=== PATIENT | female | born 1970 | race Caucasian/White ===

== ENCOUNTER 2017-12-08 08:00 | Outpatient (CLI) | payer OTHER ==
[2017-12-08 12:43] LABS: BASOPHILS # (AUTO) 0.1 10^3/uL (0.0-0.1); EOSINOPHILS # (AUTO) 0.4 10^3/uL (0.0-0.7); EOSINOPHILS % (AUTO) 4.5 %; HGB - HEMOGLOBIN 14.8 g/dL (12.0-16.0); LYMPHOCYTES # (AUTO) 3.3 10^3/uL (1.5-3.5); LYMPHOCYTES % (AUTO) 38.7 %; MEAN CORPUSCULAR HEMOGLOBIN 30.7 pg (27.0-31.0); MEAN CORPUSCULAR VOLUME 90.4 fL (81.0-99.0); MEAN PLATELET VOLUME 7.8 fL (7.9-10.8); MONOCYTES # (AUTO) 0.8 10^3/uL (0.0-1.0); MONOCYTES % (AUTO) 9.5 %; NEUTROPHILS # (AUTO) 3.9 10^3/uL (1.5-6.6); NEUTROPHILS % (AUTO) 46.3 %; PLT - PLATELET COUNT 377 10^3/uL (130-450); RED BLOOD COUNT 4.83 10^6/uL (4.20-5.40); RED CELL DISTRIBUTION WIDTH 13.9 % (12.0-15.0); WHITE BLOOD COUNT 8.5 x10^3/uL (4.8-10.8)
[2017-12-08 13:00] LABS: ALBUMIN 4.3 g/dL (3.2-5.5); ALBUMIN/GLOBULIN RATIO 1.2 (1.0-2.2); ALKALINE PHOSPHATASE 63 IU/L (42-121); ALT ALANINE AMINOTRANSFERASE 25 IU/L (10-60); AST ASPARTATE AMINOTRANSFERASE 25 IU/L (10-42); BILIRUBIN,TOTAL 0.5 mg/dL (0.2-1.0); BUN - BLOOD UREA NITROGEN 18 mg/dL (6-20); CALCIUM 9.3 mg/dL (8.5-10.3); CARBON DIOXIDE - CO2 27 mmol/L (21-32); CHLORIDE 104 mmol/L (101-111); CHOL/HDL RATIO 5.1 (<4.4); CHOLESTEROL 223 mg/dL; CREATININE 0.8 mg/dL (0.4-1.0); GFR - MDRD 77 (>89); GLUCOSE 96 mg/dL (70-100); HDL CHOLESTEROL 44 mg/dL; LDL CHOLESTEROL,CALCULATED 153 mg/dL; LDL/HDL RATIO 3.5 (<4.4); SODIUM 136 mmol/L (135-145); TOTAL PROTEIN 7.8 g/dL (6.7-8.2); VLDL CHOLESTEROL 26 mg/dL
== END 2017-12-08 08:01 ==
LOC: LAB.WCP 08:00
PROVIDERS: ATTEND Family Medicine
DX: Z00.00 Encounter for general adult medical examination without abnormal findings (principal); M72.6 Necrotizing fasciitis; K50.90 Crohn's disease, unspecified, without complications; M06.9 Rheumatoid arthritis, unspecified; L93.0 Discoid lupus erythematosus; Z79.891 Long term (current) use of opiate analgesic
CPT/HCPCS: 36415; 80053; 80061; 83721; 84443; 85025

== ENCOUNTER 2018-02-01 10:54 | Outpatient (CLI) | payer OTHER ==
--- NOTE | 2018-02-16 12:15 | Mammography Report ---
Procedure Date: 02/01/2018 Accession Number: [id number] / [id number] Procedure: MGN - Screening Mammo Dig Bilat CPT Code: FULL RESULT: EXAM: Screening Mammo Dig Bilat DATE: 02/01/2018 11:12 AM CLINICAL HISTORY: Routine screening TECHNIQUE: Bilateral CC and MLO views were obtained. COMPARISON: None available FINDINGS: There are scattered fibroglandular densities. No suspicious masses, clustered microcalcifications, skin thickening, or regions of architectural distortion are identified. Metallic device right axilla. IMPRESSION: Negative. RECOMMENDATION: Routine annual screening unless otherwise clinically indicated. BIRADS CATEGORY 1: Negative. STANDARD QUALIFYING STATEMENTS: 1. This examination was reviewed with the aid of Computer-Aided Detection (CAD). 2. A negative or benign imaging report should not delay biopsy if clinically suspicious findings are present. Consider surgical consultation if warrented. More than 5% of cancers are not identified by imaging. 3. Dense breasts may obscure an underlying neoplasm.
== END 2018-02-01 10:55 | disposition home or self-care (01) ==
LOC: DI.N 10:54
PROVIDERS: ATTEND Family Medicine
DX: Z12.31 Encounter for screening mammogram for malignant neoplasm of breast (principal)
CPT/HCPCS: 77067

== ENCOUNTER 2018-02-10 08:55 | Outpatient (CLI) | payer OTHER ==
--- NOTE | 2018-02-10 11:32 | XRAY Report ---
Procedure Date: 02/10/2018 Accession Number: [id number] / [id number] Procedure: XRN - Foot 3 View BILAT CPT Code: FULL RESULT: EXAM: Two-view bilateral feet DATE: 02/10/2018 9:38 AM CLINICAL HISTORY: HAND AND FOOT PAIN COMPARISON: None. TECHNIQUE: 2 views each foot. FINDINGS: RIGHT: Bones: Plantar and posterior calcaneal spurring. No evidence of fracture. Joints: Normal. No subluxations. Soft Tissues: Normal. No soft tissue swelling. LEFT: Bones: Posterior calcaneal spurring. No evidence of fracture. Joints: Normal. No subluxations. Soft Tissues: Normal. No soft tissue swelling. IMPRESSION: Right greater than left calcaneal spurring. RADIA
--- NOTE | 2018-02-10 11:34 | XRAY Report ---
Procedure Date: 02/10/2018 Accession Number: [id number] / [id number] Procedure: XRN - Hand 3 View BILAT CPT Code: FULL RESULT: EXAM: Hand 2 View BILAT DATE: 02/10/2018 9:38 AM CLINICAL HISTORY: Pain COMPARISON: None. TECHNIQUE: 2 views each hand. FINDINGS: RIGHT: Bones: Normal. No fractures or bone lesions. Joints: Normal. No subluxations. Soft Tissues: Normal. No soft tissue swelling. LEFT: Bones: Normal. No fractures or bone lesions. Joints: Normal. No subluxations. Soft Tissues: Normal. No soft tissue swelling. IMPRESSION: Normal bilateral hand radiography. RADIA
== END 2018-02-10 08:56 | disposition home or self-care (01) ==
LOC: DI.N 08:55
PROVIDERS: ATTEND Internal Medicine Rheumatology
DX: M77.32 Calcaneal spur, left foot (principal); M77.31 Calcaneal spur, right foot

== ENCOUNTER 2018-03-30 09:29 | Outpatient (CLI) | payer OTHER ==
[2018-03-31 12:21] LABS: HIV AG/AB 4TH GEN NON-REACTIVE (NON-REACTIVE)
[2018-04-01 12:01] LABS: HSV 2 IGG TYPE SPECIFIC AB <0.90 index
== END 2018-03-30 09:30 | disposition home or self-care (01) ==
LOC: LAB 09:29
PROVIDERS: ATTEND Family Medicine
DX: Z13.9 Encounter for screening, unspecified (principal)
CPT/HCPCS: 36415; 86695; 86696; 87389; 87491; 87591

== ENCOUNTER 2018-04-05 08:00 | Outpatient (CLI) | payer OTHER ==
[2018-04-05 19:13] LABS: ALBUMIN 3.8 g/dL (3.2-5.5); ALBUMIN/GLOBULIN RATIO 1.1 (1.0-2.2); BILIRUBIN,TOTAL 0.7 mg/dL (0.2-1.0); CALCIUM 9.4 mg/dL (8.5-10.3); CREATININE 0.9 mg/dL (0.4-1.0); TOTAL PROTEIN 7.4 g/dL (6.7-8.2)
[2018-04-05 19:25] LABS: BASOPHILS # (AUTO) 0.1 10^3/uL (0.0-0.1); BASOPHILS % (AUTO) 0.7 %; EOSINOPHILS # (AUTO) 0.3 10^3/uL (0.0-0.7); EOSINOPHILS % (AUTO) 2.6 %; HGB - HEMOGLOBIN 14.5 g/dL (12.0-16.0); LYMPHOCYTES # (AUTO) 4.7 10^3/uL (1.5-3.5); LYMPHOCYTES % (AUTO) 45.6 %; MEAN CORPUSCULAR HEMOGLOBIN 30.9 pg (27.0-31.0); MEAN CORPUSCULAR HGB CONC 33.8 g/dL (32.0-36.0); MEAN CORPUSCULAR VOLUME 91.4 fL (81.0-99.0); MEAN PLATELET VOLUME 8.3 fL (7.9-10.8); MONOCYTES # (AUTO) 0.9 10^3/uL (0.0-1.0); MONOCYTES % (AUTO) 8.7 %; NEUTROPHILS # (AUTO) 4.3 10^3/uL (1.5-6.6); NEUTROPHILS % (AUTO) 42.4 %; PLT - PLATELET COUNT 353 10^3/uL (130-450); RED BLOOD COUNT 4.69 10^6/uL (4.20-5.40); WHITE BLOOD COUNT 10.3 x10^3/uL (4.8-10.8)
== END 2018-04-05 08:01 | disposition home or self-care (01) ==
LOC: LAB.N 08:00
PROVIDERS: ATTEND Internal Medicine Gastroenterology
DX: K50.813 Crohn's disease of both small and large intestine with fistula (principal)
CPT/HCPCS: 36415; 80053; 85025

== ENCOUNTER 2018-04-08 14:56 | Emergency (ER) | payer OTHER ==
[2018-04-08] MEDS ORDERED: KETOROLAC 30 MG/ML VIAL IVP STA (15:19)
--- NOTE | 2018-04-08 15:21 | ED Physician Documentation ---
PD HPI ABD PAIN - Stated complaint Stated Complaint: ABD PX - Chief complaint Chief Complaint: Abd Pain - History obtained from History obtained from: Patient - History of Present Illness Timing - onset: Today Timing - duration: Minutes Timing - details: Abrupt onset, Still present Quality: Sharp, Pain Location: LUQ Radiation: Other (genitals) Improved by: Other (nothing) Worsened by: Other (nothing) Associated symptoms: No: Fever, Nausea, Vomiting, Hematemesis, Diarrhea, Constipation Similar symptoms before: Diagnosis (kidney stone) Recently seen: Not recently seen - Additional information Additional information: 39-year-old female with history of Crohn's disease has moved to the [facility] here today. She has experienced sudden onset of severe left sided pain radiating into her genitals. She has had this occur once previously about 2 years ago related to kidney stone. She also has had complicated past history with Crohn's disease with abscess and fistula formation. This took quite a while to heal up from. She does not feel like she has any issue with her Crohn' s disease right now. Review of Systems Constitutional: denies: Fever Eyes: denies: Decreased vision Ears: denies: Ear pain Nose: denies: Congestion Throat: denies: Sore throat Cardiac: denies: Chest pain / pressure, Palpitations Respiratory: denies: Dyspnea, Cough GI: reports: Abdominal Pain, Nausea. denies: Vomiting, Constipation, Diarrhea : denies: Dysuria, Frequency Skin: denies: Rash Musculoskeletal: reports: Back pain. denies: Neck pain, Extremity pain Neurologic: denies: Generalized weakness, Focal weakness, Numbness PD PAST MEDICAL HISTORY - Present Medications Home Medications: Ambulatory Orders Medication Instructions Recorded Confirmed Adalimumab [Humira] 04/08/18 HYDROcod/ACETAM 5/325 [[place] 5/325] 04/08/18 04/08/18 buPROPion [Wellbutrin Sr] 04/08/18 traZODone [Desyrel] 04/08/18 - Allergies Allergies/Adverse Reactions: Allergies Allergy/AdvReac Type Severity Reaction Status Date / Time metoclopramide [From Reglan] Allergy Respiratory Verified 04/08/18 15:03 Penicillins Allergy Rash Verified 04/08/18 15:03 prochlorperazine Allergy Respiratory Verified 04/08/18 15:03 [From Compazine] PD ED PE NORMAL - Vitals Vital signs reviewed: Yes (hypertensive ) - General General: Alert and oriented X 3, Well developed/nourished, Other (47 y/o pleasant female 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 ) - HEENT HEENT: Atraumatic, PERRL, EOMI - Neck Neck: Supple, no meningeal sign - Abdomen Abdomen: Normal bowel sounds, Soft, Non tender, Non distended, No organomegaly - Back Back: No CVA TTP, No spinal TTP - Derm Derm: Normal color, Warm and dry, No rash - Extremities Extremities: No deformity, No edema - Neuro Neuro: Alert and oriented X 3, tooth cutter pinion 2-12 intact, No motor deficit, No sensory deficit, Normal speech Eye Opening: Spontaneous Motor: Obeys Commands Verbal: Oriented GCS Score: 15 - Psych Psych: Normal mood, Normal affect Results - Vitals Vitals: Vital Signs - 24 hr 04/08/18 15:00 Temperature 36 C L Heart Rate 99 Respiratory 20 Rate Blood Pressure 148/106 H O2 Saturation 99 Oxygen O2 Source Room air - Labs Labs: Laboratory Tests 04/08/18 04/08/18 04/08/18 15:00 15:00 15:20 WBC 11.6 H RBC 4.71 Hgb 14.4 Hct 41.4 MCV 88.0 MCH 30.5 MCHC 34.7 RDW 13.9 Plt Count 353 MPV 8.2 Neut # (Auto) Not Reportable Lymph # (Auto) Not Reportable [place] # (Auto) Not Reportable Eos # (Auto) Not Reportable Baso # (Auto) Not Reportable Absolute Nucleated RBC Not Reportable Total Counted 100 Band Neuts % (Manual) 0 Abnorm Lymph % (Manual) 0 Nucleated RBC % Not Reportable Neutrophils # (Manual) 4.2 Lymphocytes # (Manual) 6.1 H Monocytes # (Manual) 0.6 Eosinophils # (Manual) 0.5 Basophils # (Manual) 0.2 H Differential Comment MANUAL DIFFERENTIAL Manual Slide Review Indicated WBC Morphology NORMAL APPEARANCE Platelet Estimate NORMAL (130-450,000) Platelet Morphology NORMAL APPEARANCE RBC Morph Micro Appear NORMAL APPEARANCE Sodium Potassium Chloride Carbon Dioxide Anion Gap BUN Creatinine Estimated GFR (MDRD) Glucose Calcium Total Bilirubin AST ALT Alkaline Phosphatase Total Protein Albumin Globulin Albumin/Globulin Ratio Lipase Urine Color YELLOW Urine Clarity CLEAR Urine pH 5.5 Ur Specific [place] >=1.030 H >=1.030 H Urine Protein NEGATIVE Urine Glucose (UA) NEGATIVE Urine Ketones 40 H Urine Occult Blood SMALL H Urine Nitrite NEGATIVE Urine Bilirubin NEGATIVE Urine Urobilinogen 0.2 (NORMAL) Ur Leukocyte Esterase SMALL H Urine RBC 0-5 Urine WBC 4-5 Ur Squamous Epith Cells MANY Squamous H Urine Bacteria Few Urine Mucus Moderate Strands Ur Microscopic Review INDICATED Urine Culture Comments NOT INDICATED Urine HCG, Qual NEGATIVE 04/08/18 15:20 WBC RBC Hgb Hct MCV MCH MCHC RDW Plt Count MPV Neut # (Auto) Lymph # (Auto) [place] # (Auto) Eos # (Auto) Baso # (Auto) Absolute Nucleated RBC Total Counted Band Neuts % (Manual) Abnorm Lymph % (Manual) Nucleated RBC % Neutrophils # (Manual) Lymphocytes # (Manual) Monocytes # (Manual) Eosinophils # (Manual) Basophils # (Manual) Differential Comment Manual Slide Review WBC Morphology Platelet Estimate Platelet Morphology RBC Morph Micro Appear Sodium 136 Potassium 3.8 Chloride 102 Carbon Dioxide 24 Anion Gap 10.0 BUN 20 Creatinine 1.0 Estimated GFR (MDRD) 59 L Glucose 89 Calcium 9.6 Total Bilirubin 0.9 AST 29 ALT 24 Alkaline Phosphatase 69 Total Protein 8.0 Albumin 4.6 Globulin 3.4 Albumin/Globulin Ratio 1.4 Lipase 42 Urine Color Urine Clarity Urine pH Ur Specific [place] Urine Protein Urine Glucose (UA) Urine Ketones Urine Occult Blood Urine Nitrite Urine Bilirubin Urine Urobilinogen Ur Leukocyte Esterase Urine RBC Urine WBC Ur Squamous Epith Cells Urine Bacteria Urine Mucus Ur Microscopic Review Urine Culture Comments Urine HCG, Qual - Rads (name of study) CT abd pel without Radiology: Prelim report reviewed (Impression: 1. Obstructing 0.4 x 1.2 cm distal left ureteral stone results in mild left hydroureter and hydronephrosis. No nonobstructing left-sided renal stones or mass. 2 No obstructing or nonobstructing right-sided renal stones. No right renal mass or hydronephrosis.3 Fatty liver. No mass. 4 IUD is noted. IUD appears to be low in position. This could be confirmed with pelvic ultrasound.), EMP read indepedently, See rad report Procedures - Bedside sono Bedside sono by EMP: With the use of bedside ultrasound the patient is acutely imaged and appears to have some mild hydronephrosis of the left kidney and the kidney is sonographically nontender. PD MEDICAL DECISION MAKING - ED course Complexity details: reviewed results, re-evaluated patient, considered differential, d/w patient ED course: 47-year-old female appears to have kidney stone on initial evaluation IV is begun she is administered Toradol and a CT scan is ordered. The toradol is ineffective and she is administered IV dilaudid and zofran as well. She has some improvement in the pain with the dialudid and requires a second dose and she is administered saline as well. - Sepsis Event Vital Signs: Vital Signs - 24 hr 04/08/18 15:00 Temperature 36 C L Heart Rate 99 Respiratory 20 Rate Blood Pressure 148/106 H O2 Saturation 99 Oxygen O2 Source Room air Departure - Departure Disposition: Home, Self Care Clinical Impression: Ureterolithiasis Condition: Stable Instructions: ED Stone Renal W Colic Follow-Up: Bradley Samuel MD [Primary Care Provider] - Lola Ordoñez DO [Provider Admit Priv/Credential] -
[2018-04-08 15:35] LABS: BILIRUBIN,URINE NEGATIVE (NEGATIVE); GLUCOSE, URINE (UA) NEGATIVE (NEGATIVE); KETONES,URINE (UA) 40 mg/dL (NEGATIVE); LEUKOCYTE ESTERASE, URINE SMALL (NEGATIVE); NITRITE,URINE NEGATIVE (NEGATIVE); OCCULT BLOOD,URINE SMALL (NEGATIVE); PH,URINE 5.5 PH (5.0-7.5); PROTEIN,URINE NEGATIVE (NEGATIVE); UROBILINOGEN,URINE 0.2 (NORMAL) E.U./dL (NORMAL)
[2018-04-08 15:38] LABS: HCG UR QUAL NEGATIVE
[2018-04-08] MEDS ORDERED: HYDROmorphone 1 MG/ML CARPUJECT IVP STA ×2 (15:38→16:18)
[2018-04-08] MEDS ORDERED: ONDANSETRON 4 MG/2 ML VIAL IVP STA (15:38)
[2018-04-08 15:39] LABS: CLARITY,URINE CLEAR (CLEAR)
[2018-04-08 15:41] LABS: BASOPHILS % (AUTO) 2.3 %; EOSINOPHILS % (AUTO) 2.1 %; HGB - HEMOGLOBIN 14.4 g/dL (12.0-16.0); MEAN CORPUSCULAR HEMOGLOBIN 30.5 pg (27.0-31.0); MEAN CORPUSCULAR HGB CONC 34.7 g/dL (32.0-36.0); MEAN PLATELET VOLUME 8.2 fL (7.9-10.8); MONOCYTES % (AUTO) 7.4 %; NEUTROPHILS % (AUTO) 33.2 %; PLT - PLATELET COUNT 353 10^3/uL (130-450); RED BLOOD COUNT 4.71 10^6/uL (4.20-5.40); RED CELL DISTRIBUTION WIDTH 13.9 % (12.0-15.0); WHITE BLOOD COUNT 11.6 x10^3/uL (4.8-10.8)
[2018-04-08] MEDS ORDERED: SODIUM CHLORIDE 0.9% 1,000 ML IV ONE (15:41)
[2018-04-08 15:44] LABS: ABNORMAL LYMPHS % (MANUAL) 0 %; BAND NEUTROPHILS % (MANUAL) 0 %
[2018-04-08 15:46] LABS: BACTERIA,URINE Few /HPF (None Seen); MUCUS,URINE Moderate Strands; RBC,URINE 0-5 /HPF (0-5); SQUAMOUS EPITHELIAL CELL,UR MANY Squamous (<= Few)
[2018-04-08 15:58] LABS: ALBUMIN 4.6 g/dL (3.2-5.5); ALBUMIN/GLOBULIN RATIO 1.4 (1.0-2.2); BILIRUBIN,TOTAL 0.9 mg/dL (0.2-1.0); CALCIUM 9.6 mg/dL (8.5-10.3)
--- NOTE | 2018-04-08 16:10 | CT Report ---
Procedure Date: 04/08/2018 Accession Number: [id number] / [id number] Procedure: CT - Abdomen/Pelvis W/O CPT Code: FULL RESULT: EXAM: CT ABDOMEN AND PELVIS (CT KUB) EXAM DATE: 04/08/2018 03:39 PM. CLINICAL HISTORY: Left flank pain. COMPARISONS: None. TECHNIQUE: Routine axial helical CT imaging was performed through the abdomen and pelvis without IV contrast. Reconstructions: Coronal and sagittal. In accordance with CT protocol optimization, one or more of the following dose reduction techniques were utilized for this exam: automated exposure control, adjustment of mA and/or KV based on patient size, or use of iterative reconstructive technique. FINDINGS: Lung Bases: Lung bases are clear. No pleural or pericardial effusions. No cardiac enlargement. Small hiatal hernia noted. right Kidney/Ureter: No stones, hydronephrosis, or hydroureter. No perinephric fat stranding. Left Kidney/Ureter: 0.4 x 0.2 cm distal left ureteral stone results in mild hydroureter and hydronephrosis. Mild perinephric fat stranding. No contour deforming renal mass noted. No non obstructing stones are noted. other Solid Organs: Fatty liver. No mass. Otherwise, the noncontrast images of the solid organs are grossly unremarkable. Gallbladder/Bile Ducts: Unremarkable. Peritoneal Cavity: No free fluid, free air or avril adenopathy. Bowel is grossly unremarkable. Normal appendix. Pelvic Organs: IUD is noted in low position. Otherwise, the bladder and visualized pelvic organs are within normal limits. No collections, ascites or adenopathy. vasculature: Unremarkable. Other: None. IMPRESSION: 1. Obstructing 0.4 x 0.2 cm distal left ureter stone results in mild left hydroureter and hydronephrosis. No nonobstructing left-sided renal stones or mass. 2. No obstructing or nonobstructing right-sided renal stones. No right renal mass or hydronephrosis. 3. Fatty liver. No mass. 4. IUD is noted. IUD appears to be low in position. This could be confirmed with pelvic ultrasound. RADIA
[2018-04-08 16:14] LABS: BASOPHILS # (MANUAL) 0.2 10^3/uL (0-0.1); BASOPHILS % (MANUAL) 2 %; DIFFERENTIAL COMMENT MANUAL DIFFERENTIAL; EOSINOPHILS # (MANUAL) 0.5 10^3/uL (0-0.7); LYMPHOCYTES # (MANUAL) 6.1 10^3/uL (1.5-3.5); LYMPHOCYTES % (MANUAL) 53 %; MONOCYTES # (MANUAL) 0.6 10^3/uL (0.0-1.0); NEUTROPHILS # (MANUAL) 4.2 10^3/uL (1.5-6.6); NEUTROPHILS % (MANUAL) 36 %; PLATELET ESTIMATE, MANUAL NORMAL (130-450,000) (NORMAL); PLATELET MORPHOLOGY NORMAL APPEARANCE (NORMAL); RBC MORPHOLOGY (MULTIPLE) NORMAL APPEARANCE (NORMAL)
[2018-04-08 16:40] VITALS: BP 121/77
== END 2018-04-08 16:51 | disposition home or self-care (01) ==
LOC: ED 14:56
DX: N13.2 Hydronephrosis with renal and ureteral calculous obstruction (principal); Z87.442 Personal history of urinary calculi
CPT/HCPCS: 36415; 74176; 80053; 81001; 81025; 83690; 85025; 96374; 96375; 96376; 99283; J1170; 81003; 87086

== ENCOUNTER 2018-04-13 12:16 | Outpatient (CLI) | payer OTHER ==
[2018-04-13] MEDS ORDERED: IOPAMIDOL-300 100 ML VIAL ONE (12:59)
[2018-04-13] MEDS ORDERED: IOPAMIDOL-300 100 ML VIAL IVP ONE (15:28)
--- NOTE | 2018-04-13 15:46 | CT Report ---
Procedure Date: 04/13/2018 Accession Number: [id number] / [id number] Procedure: CT - Chest Angio (PE) CPT Code: FULL RESULT: EXAM: CT ANGIOGRAM CHEST EXAM DATE: 04/13/2018 01:54 PM. CLINICAL HISTORY: Chest pain. COMPARISON: None. TECHNIQUE: Routine helical imaging was performed through the chest in the pulmonary arterial phase. IV Contrast: Isovue 300 80 mL. Reconstructions: Coronal 3-D MIP reconstructions.Sagittal and coronal. In accordance with CT protocol optimization, one or more of the following dose reduction techniques were utilized for this exam: automated exposure control, adjustment of mA and/or KV based on patient size, or use of iterative reconstructive technique. FINDINGS: Pulmonary Arteries: Diagnostic quality: Limited but sufficient through the lobar arteries. Within these limitations there is no evidence for acute or chronic pulmonary emboli. RV/LV is within normal limits. There is no interventricular septal bowing. There is no reflux of contrast material in the IVC. Lungs/Pleura: No consolidation, nodules, or edema. No effusions or pneumothorax. Mediastinum: There is borderline biventricular enlargement. Otherwise there is no lymphadenopathy or other mediastinal abnormality. Thoracic Aorta: Unremarkable. Upper Abdomen: Unremarkable. Other: None. IMPRESSION: Limited examination with no large pulmonary embolism. No pneumonia. RADIA
== END 2018-04-13 12:17 | disposition home or self-care (01) ==
LOC: DI 12:16
PROVIDERS: ATTEND Physician Assistant
DX: R07.9 Chest pain, unspecified (principal)
CPT/HCPCS: 71275; Q9967

== ENCOUNTER 2018-04-28 08:21 | Outpatient (CLI) | payer OTHER | END 2018-04-28 08:22 | disposition home or self-care (01) | LOC: DI 08:21 | PROVIDERS: ATTEND Physician Assistant | DX: R07.9 Chest pain, unspecified (principal) ==

== ENCOUNTER 2018-05-16 07:54 | Outpatient (CLI) | payer OTHER ==
[2018-05-16 08:09] LABS: BASOPHILS # (AUTO) 0.1 10^3/uL (0.0-0.1); EOSINOPHILS # (AUTO) 0.3 10^3/uL (0.0-0.7); EOSINOPHILS % (AUTO) 3.7 %; HGB - HEMOGLOBIN 15.1 g/dL (12.0-16.0); LYMPHOCYTES # (AUTO) 3.3 10^3/uL (1.5-3.5); LYMPHOCYTES % (AUTO) 40.9 %; MEAN CORPUSCULAR HGB CONC 34.3 g/dL (32.0-36.0); MEAN CORPUSCULAR VOLUME 90.4 fL (81.0-99.0); MEAN PLATELET VOLUME 7.2 fL (7.9-10.8); MONOCYTES # (AUTO) 0.7 10^3/uL (0.0-1.0); MONOCYTES % (AUTO) 8.7 %; NEUTROPHILS # (AUTO) 3.6 10^3/uL (1.5-6.6); NEUTROPHILS % (AUTO) 45.7 %; PLT - PLATELET COUNT 342 10^3/uL (130-450); RED BLOOD COUNT 4.88 10^6/uL (4.20-5.40)
[2018-05-16 08:20] LABS: ALBUMIN 4.2 g/dL (3.2-5.5); ALBUMIN/GLOBULIN RATIO 1.3 (1.0-2.2); BILIRUBIN,TOTAL 0.3 mg/dL (0.2-1.0); CALCIUM 9.4 mg/dL (8.5-10.3); TOTAL PROTEIN 7.5 g/dL (6.7-8.2)
== END 2018-05-16 07:55 | disposition home or self-care (01) ==
LOC: LAB 07:54
PROVIDERS: ATTEND Family Medicine
DX: E78.5 Hyperlipidemia, unspecified (principal); H10.9 Unspecified conjunctivitis; K50.90 Crohn's disease, unspecified, without complications; M06.9 Rheumatoid arthritis, unspecified
CPT/HCPCS: 36415; 80053; 85025

== ENCOUNTER 2018-07-10 10:50 | Emergency (ER) | payer OTHER ==
[2018-07-10] MEDS ORDERED: DEXAMETHASONE 10 MG/ML VIAL IVP STA (11:16)
[2018-07-10] MEDS ORDERED: FAMOTIDINE 20 MG/50 ML 50 ML IV ONE (11:17)
--- NOTE | 2018-07-10 11:21 | ED Physician Documentation ---
History of Present Illness - Stated complaint Stated Complaint: ALLERGIC REACTION - Chief complaint Chief Complaint: Allergic Rx - Additonal information Additional information: hx from pt took doxepin first time last night developed sx of nausea hallucination numb lips and tongue vision chages and chest pain no other recent illness denies preg Review of Systems Constitutional: denies: Fever, Chills Throat: reports: Other (numb tonhue and lips) Cardiac: reports: Chest pain / pressure Respiratory: reports: Dyspnea GI: denies: Vomiting, Diarrhea Skin: denies: Rash Endocrine: denies: Easy bruising / bleeding Immunocompromised: denies: Immunocompromised PD PAST MEDICAL HISTORY - Present Medications Home Medications: Ambulatory Orders Medication Instructions Recorded Confirmed HYDROcod/ACETAM 5/325 [[place] 5/325] 325 mg PO DAILY 04/08/18 06/29/18 buPROPion [Wellbutrin Sr] 300 mg PO DAILY 04/08/18 06/29/18 traZODone [Desyrel] 50 mg PO DAILY 04/08/18 06/29/18 Doxepin [SINEquan] 10 mg PO QPM 07/10/18 07/10/18 Loratadine [Claritin] 10 mg PO DAILY #3 tablet 07/10/18 predniSONE [Deltasone] 60 mg PO DAILY 3 Days #9 tablet 07/10/18 - Allergies Allergies/Adverse Reactions: Allergies Allergy/AdvReac Type Severity Reaction Status Date / Time doxepin Allergy Intermediate Respiratory Verified 07/10/18 11:36 metoclopramide [From Reglan] Allergy Respiratory Verified 04/08/18 15:03 Penicillins Allergy Rash Verified 07/10/18 11:35 prochlorperazine Allergy Respiratory Verified 04/08/18 15:03 [From Compazine] PD ED PE NORMAL - Vitals Vital signs reviewed: Yes - HEENT HEENT: Other (no oral edema) - Cardiac Cardiac: RRR - Respiratory Respiratory: No respiratory distress, Other (no wheeze) - Abdomen Abdomen: Soft, Non tender - Derm Derm: No rash - Neuro Neuro: Alert and oriented X 3 Results - Vitals Vitals: Vital Signs - 24 hr 07/10/18 07/10/18 07/10/18 10:55 11:21 11:43 Temperature 36.3 C L 36.8 C Heart Rate 114 H 85 Respiratory 24 99 H 20 Rate Blood Pressure 179/102 H 129/97 H 144/100 H O2 Saturation 99 98 98 Oxygen O2 Source Room air PD MEDICAL DECISION MAKING - ED course ED course: sx better after meds ready to go home Departure - Departure Disposition: Home, Self Care Clinical Impression: Allergic reaction Qualifiers: Encounter type: initial encounter Qualified Code(s): T78.40XA - Allergy, unspecified, initial encounter Condition: Good Instructions: ED Drug React Allergic Prescriptions: Loratadine [Claritin] 10 mg PO DAILY #3 tablet predniSONE [Deltasone] 60 mg PO DAILY 3 Days #9 tablet Comments: Do not take doxepin again. Take the claritin and prednisone for 3 more days to prevent re-occurance Forms: Activity restrictions
[2018-07-10] MEDS ORDERED: ONDANSETRON 4 MG/2 ML VIAL IVP STA (11:58)
[2018-07-10 14:04] VITALS: BP 128/78
== END 2018-07-10 14:04 | disposition home or self-care (01) ==
LOC: ED 10:50
DX: R11.0 Nausea (principal); R20.0 Anesthesia of skin; R07.9 Chest pain, unspecified; T43.015A Adverse effect of tricyclic antidepressants, initial encounter; I51.7 Cardiomegaly
CPT/HCPCS: 93005; 96365; 96375; 99283

== ENCOUNTER 2018-09-14 01:07 | Emergency (ER) | payer BC, OTHER ==
[2018-09-14 01:18] VITALS: BP 128/90
[2018-09-14] MEDS ORDERED: KETOROLAC 15 MG/ML VIAL IM STA (01:18)
[2018-09-14] MEDS ORDERED: predniSONE 20 MG TABLET PO STA (01:18)
[2018-09-14] MEDS ORDERED: LIDOCAINE PATCH 5% TOP STA (01:18)
--- NOTE | 2018-09-14 01:21 | ED Physician Documentation ---
PD HPI UPPER EXT INJURY - Stated complaint Stated Complaint: SHOULDER PX - Chief complaint Chief Complaint: Ext Problem - History obtained from History obtained from: Patient - History of Present Illness Location: Left, Shoulder Type of injury: No: Fall, Blunt / blow Where injury occurred: Home Timing - onset: How many hours ago (6) Timing - duration: Hours (6) Timing - details: Gradual onset Pain level max: 6 Pain level now: 4 Severity Comments: moderate Improved by: Rest Worsened by: Moving Associated symptoms: No: Weakness, Numbness, Tingling Review of Systems Ten Systems: 10 systems reviewed and negative Constitutional: reports: Reviewed and negative Eyes: reports: Reviewed and negative Ears: reports: Reviewed and negative Nose: reports: Reviewed and negative Throat: reports: Reviewed and negative Cardiac: reports: Reviewed and negative Respiratory: reports: Reviewed and negative GI: reports: Reviewed and negative : reports: Reviewed and negative Skin: reports: Reviewed and negative Musculoskeletal: reports: Reviewed and negative Neurologic: reports: Reviewed and negative Psychiatric: reports: Reviewed and negative Endocrine: reports: Reviewed and negative Immunocompromised: reports: Reviewed and negative PD PAST MEDICAL HISTORY - Past Medical History Cardiovascular: Other Respiratory: None Endocrine/Autoimmune: Other GI: Crohn's disease : None HEENT: Other Psych: None Musculoskeletal: None Derm: None - Past Surgical History Past Surgical History: Yes General: Other Other past surgical history: Reviewed and not pertinent - Present Medications Home Medications: Ambulatory Orders Medication Instructions Recorded Confirmed HYDROcod/ACETAM 5/325 [[place] 5/325] 325 mg PO DAILY 04/08/18 08/10/18 buPROPion [Wellbutrin Sr] 300 mg PO DAILY 04/08/18 08/10/18 traZODone [Desyrel] 50 mg PO DAILY 04/08/18 08/10/18 Doxepin [SINEquan] 10 mg PO QPM 07/10/18 08/10/18 Loratadine [Claritin] 10 mg PO DAILY #3 tablet 07/10/18 08/10/18 predniSONE [Deltasone] 60 mg PO DAILY 3 Days #9 tablet 07/10/18 08/10/18 Lidocaine Patch 5% [Lidoderm Patch] 1 patch TOP DAILY PRN #10 patch 09/14/18 predniSONE [Prednisone] 60 mg PO DAILY #15 tablet 09/14/18 - Allergies Allergies/Adverse Reactions: Allergies Allergy/AdvReac Type Severity Reaction Status Date / Time doxepin Allergy Intermediate Respiratory Verified 09/14/18 01:18 metoclopramide [From Reglan] Allergy Respiratory Verified 09/14/18 01:18 Penicillins Allergy Rash Verified 09/14/18 01:18 prochlorperazine Allergy Respiratory Verified 09/14/18 01:18 [From Compazine] - Living Situation Living Situation: reports: With family Living Arrangement: reports: At home - Social History Does the pt smoke?: No Smoking Status: Former smoker Does the pt drink ETOH?: Yes Does the pt have substance abuse?: No - Family History Family history: reports: Other (Reviewed and not pertinent) - Immunizations Immunizations are current?: Yes - POLST Patient has POLST: No PD ED PE NORMAL - Vitals Vital signs reviewed: Yes - General General: Alert and oriented X 3, No acute distress - HEENT HEENT: PERRL - Neck Neck: Supple, no meningeal sign - Cardiac Cardiac: RRR, No murmur - Respiratory Respiratory: Clear bilaterally - Abdomen Abdomen: Normal bowel sounds, Soft, Non tender, Non distended - Derm Derm: Warm and dry - Extremities Extremities: No deformity, Other (Left shoulder tender to palpation. Limited range of motion due to pain.Neurovascularly intact) - Neuro Neuro: Alert and oriented X 3 - Psych Psych: Normal mood, Normal affect Results - Vitals Vitals: Vital Signs - 24 hr 09/14/18 01:12 Temperature 36.8 C Heart Rate 89 Respiratory 17 Rate Blood Pressure 128/90 H O2 Saturation 99 Oxygen O2 Source Room air PD MEDICAL DECISION MAKING - ED course Complexity details: re-evaluated patient, considered differential, d/w patient ED course: 48-year-old female with chronic shoulder pain presents with left shoulder pain.Patient treated symptomatically and will be seeing her primary care provider in the morning. Departure - Departure Disposition: 01 Home, Self Care Clinical Impression: Left shoulder strain Qualifiers: Encounter type: initial encounter Qualified Code(s): S46.912A - Strain of unspecified muscle, fascia and tendon at shoulder and upper arm level, left arm, initial encounter Instructions: Shoulder Probs Follow-Up: Bradley Samuel MD [Primary Care Provider] - Prescriptions: Lidocaine Patch 5% [Lidoderm Patch] 1 patch TOP DAILY PRN #10 patch PRN Reason: pain predniSONE [Prednisone] 60 mg PO DAILY #15 tablet
== END 2018-09-14 01:46 | disposition home or self-care (01) ==
LOC: ED 01:07
DX: S46.912A Strain of unspecified muscle, fascia and tendon at shoulder and upper arm level, left arm, initial encounter (principal); X58.XXXA Exposure to other specified factors, initial encounter; Z87.891 Personal history of nicotine dependence
CPT/HCPCS: 96372; 99283; A9270; J7512

== ENCOUNTER 2018-11-03 13:24 | Outpatient (CLI) | payer BC ==
[2018-11-03 13:51] LABS: BASOPHILS # (AUTO) 0.2 10^3/uL (0.0-0.1); BASOPHILS % (AUTO) 1.2 %; EOSINOPHILS # (AUTO) 0.1 10^3/uL (0.0-0.7); EOSINOPHILS % (AUTO) 0.8 %; HGB - HEMOGLOBIN 14.9 g/dL (12.0-16.0); LYMPHOCYTES # (AUTO) 5.2 10^3/uL (1.5-3.5); LYMPHOCYTES % (AUTO) 28.8 %; MEAN CORPUSCULAR HEMOGLOBIN 30.3 pg (27.0-31.0); MEAN CORPUSCULAR VOLUME 89.1 fL (81.0-99.0); MEAN PLATELET VOLUME 6.8 fL (7.9-10.8); MONOCYTES # (AUTO) 1.5 10^3/uL (0.0-1.0); MONOCYTES % (AUTO) 8.3 %; NEUTROPHILS % (AUTO) 60.9 %; PLT - PLATELET COUNT 418 10^3/uL (130-450); RED BLOOD COUNT 4.92 10^6/uL (4.20-5.40); RED CELL DISTRIBUTION WIDTH 14.6 % (12.0-15.0); WHITE BLOOD COUNT 18.1 x10^3/uL (4.8-10.8)
[2018-11-03 14:07] LABS: BILIRUBIN,URINE NEGATIVE (NEGATIVE); GLUCOSE, URINE (UA) NEGATIVE (NEGATIVE); KETONES,URINE (UA) TRACE mg/dL (NEGATIVE); LEUKOCYTE ESTERASE, URINE NEGATIVE (NEGATIVE); NITRITE,URINE NEGATIVE (NEGATIVE); OCCULT BLOOD,URINE NEGATIVE (NEGATIVE); PH,URINE 5.5 PH (5.0-7.5); PROTEIN,URINE NEGATIVE (NEGATIVE); UROBILINOGEN,URINE 0.2 (NORMAL) E.U./dL (NORMAL)
[2018-11-03 14:08] LABS: ALBUMIN 3.9 g/dL (3.2-5.5); ALBUMIN/GLOBULIN RATIO 1.1 (1.0-2.2); BILIRUBIN,TOTAL 0.4 mg/dL (0.2-1.0); CALCIUM 9.1 mg/dL (8.5-10.3); TOTAL PROTEIN 7.3 g/dL (6.7-8.2)
[2018-11-03 14:18] LABS: CLARITY,URINE CLEAR (CLEAR)
[2018-11-03 14:19] LABS: BACTERIA,URINE Rare /HPF (None Seen); CRYSTALS,URINE 11-25 Ca Oxalate /LPF; MUCUS,URINE Few Strands; RBC,URINE 0-5 /HPF (0-5); SQUAMOUS EPITHELIAL CELL,UR RARE Squamous (<= Few)
[2018-11-03 14:45] LABS: RHEUMATOID FACTOR NEGATIVE (Negative)
== END 2018-11-03 13:25 | disposition home or self-care (01) ==
LOC: LAB 13:24
PROVIDERS: ATTEND Internal Medicine Rheumatology
DX: M06.9 Rheumatoid arthritis, unspecified (principal); K50.813 Crohn's disease of both small and large intestine with fistula; L93.0 Discoid lupus erythematosus
CPT/HCPCS: 36415; 80053; 81001; 85025; 85651; 86140; 86160; 86200; 86430

== ENCOUNTER 2019-01-10 13:35 | Outpatient (CLI) | payer BC ==
--- NOTE | 2019-01-11 11:31 | MRI Report ---
Reason: PAIN IN LEFT SHOULDER Procedure Date: 01/10/2019 Accession Number: [id number] / [id number] Procedure: MRI - Shoulder LT W/O CPT Code: FULL RESULT: EXAM: LEFT SHOULDER MRI WITHOUT CONTRAST EXAM DATE: 01/10/2019 02:36 PM. CLINICAL HISTORY: Left shoulder pain. COMPARISON: 12/28/2018 radiograph. TECHNIQUE: Multiplanar, multisequence T1-weighted and fluid-sensitive sequences of the shoulder without contrast. Other: None. FINDINGS: Acromioclavicular Region: The acromion is type II. Moderate acromioclavicular osteoarthropathy as evidenced by bony hypertrophy, periarticular cyst formation, a small effusion, and capsular hypertrophy. The coracoacromial and coracoclavicular ligaments are intact. A mild amount of fluid is in the subacromial/subdeltoid bursa. Glenohumeral Region: No subluxation. No effusion or loose bodies. The articular cartilage is unremarkable. Trace osteophyte formation is in the glenohumeral joint. The glenohumeral ligaments and joint capsule are unremarkable. Bone Marrow: No fractures. Cyst on the greater tuberosity. Labrum: The labrum is unremarkable on this nonarthrographic study. Musculature/Rotator Cuff: The subscapularis, supraspinatus, infraspinatus, and teres minor tendons are intact. No edema or fatty atrophy. Biceps Tendon: The long head of the biceps tendon and biceps rip are intact. Other: The subcutaneous tissues are unremarkable. IMPRESSION: 1. Moderate, acromioclavicular osteoarthopathy. 2. Mild subacromial/subdeltoid bursitis. 3. Minimal glenohumeral osteoarthritis. RADIA
== END 2019-01-10 13:36 | disposition home or self-care (01) ==
LOC: DI 13:35
PROVIDERS: ATTEND Orthopaedic Surgery Sports Medicine
DX: M19.012 Primary osteoarthritis, left shoulder (principal); M75.52 Bursitis of left shoulder

== ENCOUNTER 2019-01-29 12:33 | Outpatient (CLI) | payer BC ==
[~2019-01-29 12:33] MED LIST: BUFFERED LIDOCAINE 10 ML SYRINGE ONE; IOTHALAMATE MEGLUMINE 50 ML VIAL ONE
[2019-01-29] MEDS ORDERED: TRIAMCINOLONE 40 MG/ML VIAL IM ONE (14:19)
[2019-01-29] MEDS ORDERED: ROPIVACAINE 0.5% PF 20 ML AMPULE EPI ONE (14:19)
[2019-01-29] MEDS ORDERED: BUFFERED LIDOCAINE 10 ML SYRINGE IU ONE ×2 (14:19)
[2019-01-29] MEDS ORDERED: IOTHALAMATE MEGLUMINE 50 ML VIAL IVP ONE ×2 (14:19)
--- NOTE | 2019-01-29 14:54 | XRAY Report ---
Reason: LT SHOULDER PAIN Procedure Date: 01/29/2019 Accession Number: [id number] / [id number] Procedure: FL - Inj/Aspiration Major Joint CPT Code: FULL RESULT: EXAM: LEFT ACROMIOCLAVICULAR JOINT STEROID INJECTION WITH FLUOROSCOPIC GUIDANCE EXAM DATE: 01/29/2019 01:47 PM. CLINICAL HISTORY: Left shoulder pain. COMPARISON: None. TECHNIQUE: The risks, benefits, and alternatives of the procedure were discussed with the patient. All questions were answered. Written and verbal consent were obtained. The left acromioclavicular joint was marked under fluoroscopy and prepped and draped in a sterile manner. Local anesthesia was performed with 1% lidocaine. A 22-gauge needle was then inserted into the left acromioclavicular joint. 2 ML of a solution containing ropivacaine and Kenalog 50% each was then injected. The needle was removed without immediate complication. Other: None. Fluoroscopy Time: 4 seconds. Number of Images: 12. FINDINGS: Bones and joints: No fracture or subluxation. Injection: Fluoroscopic images demonstrate needle placement and contrast in the left acromioclavicular joint. IMPRESSION: Fluoroscopically guided steroid injection into the left AC joint. RADIA
== END 2019-01-29 12:34 | disposition home or self-care (01) ==
LOC: DI 12:33
PROVIDERS: ATTEND Orthopaedic Surgery Sports Medicine
DX: M25.512 Pain in left shoulder (principal)
CPT/HCPCS: 20610; Q9961

== ENCOUNTER 2019-08-26 11:01 | Observation (INO) | payer BC ==
[2019-08-26 11:34] LABS: BILIRUBIN,URINE NEGATIVE (NEGATIVE); GLUCOSE, URINE (UA) NEGATIVE (NEGATIVE); KETONES,URINE (UA) NEGATIVE (NEGATIVE); LEUKOCYTE ESTERASE, URINE NEGATIVE (NEGATIVE); NITRITE,URINE NEGATIVE (NEGATIVE); OCCULT BLOOD,URINE NEGATIVE (NEGATIVE); PROTEIN,URINE NEGATIVE (NEGATIVE); UROBILINOGEN,URINE 0.2 (NORMAL) E.U./dL (NORMAL)
[2019-08-26 11:37] LABS: CLARITY,URINE CLEAR (CLEAR)
[2019-08-26 11:48] LABS: BASOPHILS # (AUTO) 0.1 10^3/uL (0.0-0.1); BASOPHILS % (AUTO) 0.8 %; EOSINOPHILS # (AUTO) 0.2 10^3/uL (0.0-0.7); EOSINOPHILS % (AUTO) 2.5 %; HGB - HEMOGLOBIN 14.6 g/dL (12.0-16.0); LYMPHOCYTES % (AUTO) 40.8 %; MEAN CORPUSCULAR HGB CONC 32.5 g/dL (32.0-36.0); MEAN CORPUSCULAR VOLUME 89.1 fL (81.0-99.0); MEAN PLATELET VOLUME 9.1 fL (7.9-10.8); MONOCYTES # (AUTO) 0.5 10^3/uL (0.0-1.0); MONOCYTES % (AUTO) 7.4 %; NEUTROPHILS # (AUTO) 3.5 10^3/uL (1.5-6.6); PLT - PLATELET COUNT 358 10^3/uL (130-450); RED BLOOD COUNT 5.04 10^6/uL (4.20-5.40); RED CELL DISTRIBUTION WIDTH 13.9 % (12.0-15.0); WHITE BLOOD COUNT 7.3 x10^3/uL (4.8-10.8)
[2019-08-26 12:02] LABS: ALBUMIN 4.3 g/dL (3.2-5.5); ALBUMIN/GLOBULIN RATIO 1.3 (1.0-2.2); BILIRUBIN,TOTAL 0.8 mg/dL (0.2-1.0); CALCIUM 9.2 mg/dL (8.5-10.3); CREATININE 0.9 mg/dL (0.4-1.0); TOTAL PROTEIN 7.7 g/dL (6.7-8.2)
--- NOTE | 2019-08-26 14:17 | ED Physician Documentation ---
PD HPI ABD PAIN - Stated complaint Stated Complaint: ABD PX - Chief complaint Chief Complaint: Abd Pain - History obtained from History obtained from: Patient - History of Present Illness Timing - onset: How many days ago (2) Timing - duration: Days (2) Timing - details: Gradual onset Pain level max: 6 Pain level now: 4 Quality: Pain Location: RLQ Radiation: Right flank Associated symptoms: No: Fever, Nausea, Vomiting, Diarrhea, Dysuria, Hematuria, Dizzy Recently seen: Not recently seen - Additional information Additional information: This is a 49-year-old woman who presents with her complaints that she is had abdominal pain for the past 2 days. When it first started she thought that it just might be a little bit of constipation or her Crohn's flare but now it has continued in the right lower quadrant is radiating up into the epigastric area and into her back. Yesterday she took a hydrocodone tablet that provided s ome relief of the pain. She rates pain out of 3-4 out of 10 it was a 6 out of 10. 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 Denies fever, nausea vomiting or diarrhea. Denies any dysuria and no Hematuria. The pain is worse if she stretches her legs out. Denies recent sore throat stuffy nose or coughing. Patient does not smoke and drinks minimal alcohol. 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 Review of Systems Constitutional: denies: Fever Ears: denies: Ear pain Nose: denies: Rhinorrhea / runny nose Throat: denies: Sore throat Respiratory: denies: Cough GI: reports: Abdominal Pain. denies: Nausea, Vomiting, Diarrhea : denies: Dysuria, Hematuria Musculoskeletal: reports: Back pain Neurologic: denies: Near syncope PD PAST MEDICAL HISTORY - Past Medical History Cardiovascular: Other Respiratory: None Endocrine/Autoimmune: Other GI: Crohn's disease : None HEENT: Other Psych: None Musculoskeletal: None Derm: None - Past Surgical History Past Surgical History: Yes General: Other - Present Medications Home Medications: Ambulatory Orders Medication Instructions Recorded Confirmed HYDROcod/ACETAM 5/325 [[place] 5/325] 325 mg PO DAILY 04/08/18 03/14/19 buPROPion [Wellbutrin Sr] 300 mg PO DAILY 04/08/18 03/14/19 traZODone [Desyrel] 50 mg PO DAILY 04/08/18 03/14/19 Lidocaine Patch 5% [Lidoderm Patch] 1 patch TOP DAILY PRN #10 patch 09/14/18 03/14/19 predniSONE [Prednisone] 60 mg PO DAILY #15 tablet 09/14/18 03/14/19 - Allergies Allergies/Adverse Reactions: Allergies Allergy/AdvReac Type Severity Reaction Status Date / Time doxepin Allergy Intermediate Respiratory Verified 09/14/18 01:18 metoclopramide [From Reglan] Allergy Respiratory Verified 09/14/18 01:18 Penicillins Allergy Rash Verified 09/14/18 01:18 prochlorperazine Allergy Respiratory Verified 09/14/18 01:18 [From Compazine] - Social History Does the pt smoke?: No Smoking Status: Former smoker Does the pt drink ETOH?: Yes Does the pt have substance abuse?: No - Immunizations Immunizations are current?: Yes - POLST Patient has POLST: No PD ED PE NORMAL - Vitals Vital signs reviewed: Yes - General General: Alert and oriented X 3, No acute distress, Well developed/nourished - HEENT HEENT: Atraumatic, PERRL, Moist mucous membranes, Other (No scleral icterus) - Cardiac Cardiac: RRR, No murmur - Respiratory Respiratory: No respiratory distress, Clear bilaterally - Abdomen Abdomen: Normal bowel sounds, Soft, Other (Tenderness in the right lower quadrant. Positive Rovsing sign.) - Back Back: No CVA TTP - Derm Derm: Normal color, Warm and dry, No rash - Extremities Extremities: No edema - Neuro Neuro: Alert and oriented X 3, health service coordinator 2-12 intact, No motor deficit, No sensory deficit, Normal speech - Psych Psych: Normal mood, Normal affect Results - Vitals Vitals: Vital Signs - 24 hr 08/26/19 08/26/19 11:21 15:37 Temperature 37.6 C H Heart Rate 83 86 Respiratory 18 Rate Blood Pressure 147/90 H 145/86 H O2 Saturation 98 100 Oxygen O2 Source Room air - Labs Labs: Laboratory Tests 08/26/19 08/26/19 08/26/19 11:30 11:43 11:43 WBC 7.3 RBC 5.04 Hgb 14.6 Hct 44.9 MCV 89.1 MCH 29.0 MCHC 32.5 RDW 13.9 Plt Count 358 MPV 9.1 Neut # (Auto) 3.5 Lymph # (Auto) 3.0 Yell # (Auto) 0.5 Eos # (Auto) 0.2 Baso # (Auto) 0.1 Absolute Nucleated RBC 0.00 Nucleated RBC % 0.0 Sodium 138 Potassium 4.1 Chloride 102 Carbon Dioxide 27 Anion Gap 9.0 BUN 18 Creatinine 0.9 Estimated GFR (MDRD) 66 L Glucose 96 Calcium 9.2 Total Bilirubin 0.8 AST 18 ALT 20 Alkaline Phosphatase 75 C-Reactive Protein Total Protein 7.7 Albumin 4.3 Globulin 3.4 Albumin/Globulin Ratio 1.3 Lipase 37 Urine Color YELLOW Urine Clarity CLEAR Urine pH 8.0 H Ur Specific [place] 1.020 Urine Protein NEGATIVE Urine Glucose (UA) NEGATIVE Urine Ketones NEGATIVE Urine Occult Blood NEGATIVE Urine Nitrite NEGATIVE Urine Bilirubin NEGATIVE Urine Urobilinogen 0.2 (NORMAL) Ur Leukocyte Esterase NEGATIVE Ur Microscopic Review NOT INDICATED Urine Culture Comments NOT INDICATED 08/26/19 11:43 WBC RBC Hgb Hct MCV MCH MCHC RDW Plt Count MPV Neut # (Auto) Lymph # (Auto) Yell # (Auto) Eos # (Auto) Baso # (Auto) Absolute Nucleated RBC Nucleated RBC % Sodium Potassium Chloride Carbon Dioxide Anion Gap BUN Creatinine Estimated GFR (MDRD) Glucose Calcium Total Bilirubin AST ALT Alkaline Phosphatase C-Reactive Protein < 1.0 Total Protein Albumin Globulin Albumin/Globulin Ratio Lipase Urine Color Urine Clarity Urine pH Ur Specific [place] Urine Protein Urine Glucose (UA) Urine Ketones Urine Occult Blood Urine Nitrite Urine Bilirubin Urine Urobilinogen Ur Leukocyte Esterase Ur Microscopic Review Urine Culture Comments - Rads (name of study) CT abd/pelvis Radiology: See rad report (Neg acute inflammatory changes) PD MEDICAL DECISION MAKING - ED course Complexity details: reviewed results, re-evaluated patient, d/w patient, d/w family ED course: White blood cell count is normal. Her urinalysis is negative. She was given 2 mg of morphine and 4 of Zofran and said the pain relief only lasted for about 30 seconds. I have ordered an additional 2 mg of morphine and a CT scan of the abdomen and pelvis with IV contrast. 1720: The patient was demanding of the nursing staff to remove her IV so that she could be discharged. Her CT did show no evidence of appendicitis however she still has right lower quadrant pain with some guarding and is still rating the pain at about a 4 out of 10. This is despite 4 mg of morphine. She has a complicated history with her Crohn's disease and I recommended admission to the hospital for observation for the abdominal pain. She did state that she has seen some blood in her stool recently. She was in agreement and I spoke with the hospitalist who is agreed to accept her for an observation as well. The IV is already been discontinued but they can access the port if she desires for IV access or reestablish a peripheral IV. Departure - Departure Disposition: ED Place in Observation Clinical Impression: Abdominal pain Qualifiers: Abdominal location: right lower quadrant Qualified Code(s): R10.31 - Right lower quadrant pain Condition: Good Discharge Date/Time: 08/26/19 18:25
[2019-08-26] MEDS ORDERED: MORPHINE 2 MG/ML CARPUJECT IVP STA ×2 (15:15→15:57)
[2019-08-26] MEDS ORDERED: ONDANSETRON 4 MG/2 ML VIAL IVP STA (15:15)
[2019-08-26] MEDS ORDERED: IOVERSOL 320 100 ML VIAL IVP ONE ×2 (15:57→16:20)
--- NOTE | 2019-08-26 16:36 | CT Report ---
Reason: RLQ pain Procedure Date: 08/26/2019 Accession Number: [id number] / [id number] Procedure: CT - Abdomen/Pelvis W CPT Code: Final Report FULL RESULT: EXAM: CT ABDOMEN AND PELVIS EXAM DATE: 08/26/2019 04:19 PM. CLINICAL HISTORY: Right lower quadrant pain COMPARISONS: ABDOMEN/PELVIS W/O 04/08/2018 3:34 PM. TECHNIQUE: Routine helical CT imaging was performed through the abdomen and pelvis. IV contrast: OPTI 320 90ML. Enteric contrast: No. Reconstructions: Coronal and sagittal. In accordance with CT protocol optimization, one or more of the following dose reduction techniques were utilized for this exam: automated exposure control, adjustment of mA and/or KV based on patient size, or use of iterative reconstructive technique. FINDINGS: Lung Bases: Unremarkable. Liver: No focal hepatic lesions are seen. Gallbladder/Bile Ducts: Unremarkable. Spleen: Normal. Pancreas: Normal. Adrenal Glands: Normal. Kidneys: Normal. No masses or hydronephrosis. Peritoneal Cavity/Bowel: No dilated or thick-walled bowel is seen. No intraperitoneal free air or free fluid. No enlarged mesenteric or retroperitoneal lymph nodes. The appendix is well visualized and normal. Pelvic Organs: Urinary bladder is within normal limits. Proximal positioning of the intrauterine device as before. No significant Allergies are seen. Vasculature: No aneurysms or other significant abnormality. Bones: No significant abnormality. Other: None. IMPRESSION: 1. No acute gastrointestinal tract abnormalities are seen. There is no evidence of bowel obstruction, appendicitis, or significant mesenteric inflammation. 2. There is likely proximal positioning of the intrauterine device. This is not significantly changed as compared to the previous study. Tubal ligation clips are in place. RADIA
[2019-08-26] MEDS ORDERED: HYDROmorphone 0.5 MG/0.5 ML SYRINGE IVP PRN (17:48)
[2019-08-26] MEDS ORDERED: ACETAMINOPHEN 325 MG TABLET PO PRN (17:48)
[2019-08-26] MEDS ORDERED: ONDANSETRON 4 MG/2 ML VIAL IVP PRN (17:48)
[2019-08-26] MEDS: SODIUM CHLORIDE FLUSH 0.9% 10 ML SYRINGE IVP PRN ×3 (18:56→20:40)
[2019-08-26] MEDS: metroNIDAZOLE 250 MG TABLET PO SCH (19:42)
[2019-08-26] MEDS: D5NS W/20 MEQ KCL 1,000 ML IV SCH (20:40)
[2019-08-26] MEDS: KETOROLAC 30 MG/ML VIAL IVP PRN (20:40)
[2019-08-26] MEDS: FAMOTIDINE 20 MG TABLET PO SCH (20:52)
--- NOTE | 2019-08-26 20:56 | HISTORY & PHYSICAL EXAMINATION ---
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 She has a history of lupus and prior pericarditis and also rheumatoid arthritis, which has affected many joints of her hands and shoulders. She has had several finger surgeries for this. There is a history of prior DVT, one in the right leg and one that resulted in a miscarriage of a baby. She is followed by the Surveillance Specialist, Dr. Tirado at the [facility] in [place] and previously had a Surveillance Specialist in [place]. When the patient gets her Crohn's flare-up, she usually gets mucousy bloody stool, cramping abdominal pain and nausea and vomiting. Three days ago, she started to get right lower quadrant pain for which she took her usual oxycodone for pain relief and the pain and other symptoms have lasted longer than her usual flare. She does have mucousy, bloody diarrhea currently as well as painful defecating. There has been no fever and she denies any nausea and vomiting on this presentation. She started to get belching as well as flatus when she is drinking milk products since the last week, which is not usual for her either. Because of the persistent pain, she came to the Emergency Room today and had workup showing no evidence of acute appendicitis but required morphine repeat doses for only moderate pain control and is being placed in Observation for IV fluids, initiation of Crohn's medications for a flare-up as well as for pain management. PAST MEDICAL HISTORY: Lupus, with pericarditis and previous alopecia, DVTs x2, rheumatoid arthritis with hand and shoulder involvement, Crohn's disease with prior enterocutaneous fistula that is now healed and it was in the rectal area, morbid obesity. ALLERGIES: DOXEPIN, METOCLOPRAMIDE, PENICILLIN, PROCHLORPERAZINE. MEDICATIONS: 1. Stelara injection every 8 weeks. She had a loading dose in April and her last injection was 07/09/2019 2. Prednisone 5 mg daily, which she took today. 3. Trazodone 50 mg at bedtime p.r.n. sleep. 4. Hydrocodone 325/5 mg 1 or 2 p.o. daily p.r.n. pain. FAMILY HISTORY: No inherited diseases. SOCIAL HISTORY: She is a nonsmoker, drinks no alcohol. No illicit drug use. 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 She lives with her boyfriend. REVIEW OF SYSTEMS: A comprehensive review of systems was performed and the pertinent positives are listed; the rest are negative. PHYSICAL EXAMINATION: GENERAL: Middle-aged white female. She appears in no distress. She just got a narcotic injection for pain. She is obese, BMI 42. VITAL SIGNS: Blood pressure 160/96, heart rate 84 in sinus rhythm with low- grade fever of 37.6, room air saturation 98%. HEENT: Exam reveals moist oral mucosa, normal appearing dentition. NECK: Obese but no JVD is appreciated. No thyromegaly. CHEST: Clear. HEART: Normal heart sounds. BREASTS: Large. ABDOMEN: Soft, nondistended. No increased tympany. There is no hepatosplenomegaly. There is tenderness to light palpation in the left upper quadrant, right lower quadrant and right upper quadrant. Normal bowel sounds. No guarding or rebound. Deep palpation of the right lower quadrant also illicits pain down the right leg. RECTAL: Exam was deferred. NEUROLOGIC: Grossly intact. SKIN: No tenting, warm and dry, normal color. LABORATORY DATA: White count 7.3, hemoglobin 14.6, normal MCV, platelet count 358. No INR was done. Normal electrolytes. Normal BUN and creatinine. Normal liver tests. Normal lipase. Normal albumin. Urinalysis pH of 8, and is unremarkable. IMAGING: Imaging of the abdomen and pelvis with a CT showed unremarkable liver and gallbladder and spleen and pancreas as well as kidneys and adrenals. There were no dilated or thick bui of the bowel seen and no free air or free fluid and no enlarged lymph nodes. The appendix was well visualized and appeared normal. The urinary bladder appeared normal. There was a low position of an IUD, which has been seen in that position before. IMPRESSION/DIAGNOSES 1. Right lower quadrant pain, which most likely is a Crohn's flare up, no evidence of acute appendicitis by virtue of no fever, normal white count and normal imaging of the appendix by CT scan. 2. Crohn's disease. 3. Blood in the stool, normal hemoglobin, however. 4. Chronic current use of steroids. 5. History of rheumatoid arthritis. 6. History of deep venous thromboses. 7. Morbid obesity. PLAN: Place the patient in Observation status for pain control with IV narcotics but also add anti-inflammatory med: IV Toradol. Begin Flagyl, which she usually gets for a flare-up, she states. Continue with her Trazodone p.r.n. Prednisone will be continued and she needs a burst increase in dose temporarily for a flare-up. Will plan to contact Dr. Tirado for further recommendations and there may be need for an in-house Surgical consult and/or CYLINDER FILLER consult. Begin IV fluids, clear liquid diet, advance as tolerated, check a CRP, B12 and folate levels in the morning (regarding malabserption) and a followup electrolyte panel and CBC. DEEP VENOUS THROMBOSIS PROPHYLAXIS: SCDs. CODE STATUS: FULL CODE. ATTESTATION: The patient is expected to be discharged or transferred to another facility within 96 hours: Yes. cc: Bradley Samuel MD TD: 08/26/2019 19:44 MTDD
[2019-08-26] MEDS ORDERED: traZODone 50 MG TABLET PO SCH (21:00)
[2019-08-27] MEDS: SODIUM CHLORIDE FLUSH 0.9% 10 ML SYRINGE IVP SCH ×2 (00:42→08:20)
[2019-08-27] MEDS: metroNIDAZOLE 250 MG TABLET PO SCH ×2 (04:53→12:20)
[2019-08-27 06:30] LABS: BASOPHILS # (AUTO) 0.1 10^3/uL (0.0-0.1); BASOPHILS % (AUTO) 0.6 %; EOSINOPHILS # (AUTO) 0.1 10^3/uL (0.0-0.7); EOSINOPHILS % (AUTO) 1.4 %; HGB - HEMOGLOBIN 13.2 g/dL (12.0-16.0); LYMPHOCYTES % (AUTO) 38.2 %; MEAN CORPUSCULAR HEMOGLOBIN 29.8 pg (27.0-31.0); MEAN CORPUSCULAR HGB CONC 32.8 g/dL (32.0-36.0); MEAN PLATELET VOLUME 9.5 fL (7.9-10.8); MONOCYTES # (AUTO) 0.7 10^3/uL (0.0-1.0); MONOCYTES % (AUTO) 8.4 %; PLT - PLATELET COUNT 332 10^3/uL (130-450); RED BLOOD COUNT 4.43 10^6/uL (4.20-5.40); RED CELL DISTRIBUTION WIDTH 13.9 % (12.0-15.0); WHITE BLOOD COUNT 7.9 x10^3/uL (4.8-10.8)
[2019-08-27] MEDS: KETOROLAC 30 MG/ML VIAL IVP PRN (06:30)
[2019-08-27 06:41] LABS: INR 1.2 (0.8-1.2); PT - PROTHROMBIN TIME 13.5 secs (9.9-12.6)
[2019-08-27 06:51] LABS: ALBUMIN 3.5 g/dL (3.2-5.5); ALBUMIN/GLOBULIN RATIO 1.3 (1.0-2.2); ALKALINE PHOSPHATASE 60 IU/L (42-121); ALT ALANINE AMINOTRANSFERASE 19 IU/L (10-60); AST ASPARTATE AMINOTRANSFERASE 17 IU/L (10-42); BILIRUBIN,TOTAL 0.8 mg/dL (0.2-1.0); BUN - BLOOD UREA NITROGEN 20 mg/dL (6-20); CALCIUM 8.9 mg/dL (8.5-10.3); CARBON DIOXIDE - CO2 27 mmol/L (21-32); CHLORIDE 107 mmol/L (101-111); CREATININE 0.9 mg/dL (0.4-1.0); GFR - MDRD 66 (>89); GLUCOSE 115 mg/dL (70-100); SODIUM 140 mmol/L (135-145); TOTAL PROTEIN 6.3 g/dL (6.7-8.2)
[2019-08-27 07:03] LABS: CRP - C-REACTIVE PROTEIN < 1.0 mg/dL (0-1.0)
[2019-08-27 07:12] LABS: FOLATE 15.01 ng/mL (5.90 - >24.8)
[2019-08-27] MEDS: D5NS W/20 MEQ KCL 1,000 ML IV SCH (08:16)
[2019-08-27] MEDS: FAMOTIDINE 20 MG TABLET PO SCH (08:20)
[2019-08-27] MEDS ORDERED: predniSONE 10 MG TABLET PO ONE (14:03)
[2019-08-27] MEDS ORDERED: KETOROLAC 10 MG TABLET PO PRN (14:04)
--- NOTE | 2019-08-27 14:18 | Discharge Plan ---
Discharge Plan Problem Reviewed?: Yes Disposition: Home, Self Care Condition: Stable Prescriptions: Ketorolac [Toradol] 10 mg PO Q6HR PRN #10 tablet PRN Reason: Pain metroNIDAZOLE [Flagyl] 500 mg PO Q8H #18 tablet Diet: Soft (Low fiber, no milk or milk products) Shower Restrictions: No Driving Restrictions: No Health Concerns: You were here in Observation status to follow the abdominal pain, monitor for excessive bleeding, development of anemia or dehydration and to start empiric treatment for a Crohn's attack. Since the Dilaudid caused you nausea, Toradol will be continued for pain control. Take 2 more days of a higher Prednisone dose of 10 mg, then return to the 5 mg daily dose. Continue with a short course of Flagyl, as advised by Dr Tirado, and a prescription was electronically sent to your pharmacy. Advance your diet as tolerated with low-fiber foods and no milk or milk products. You should have light activity and remain off of work until next week. A note was provided for your employer. Resume all your other pre-hospital medications. Dr Tirado wants you to make an appointment to see him in 1-2 weeks. If you have new or worsening symptoms, call your PCP or Dr Tirado for advice, or come to the ER. Plan of Treatment: As above Care Goals: Improvement and stabilization of the goals. Assessment: The patient understands and is agreeable with the plan. No Smoking: If you smoke, Please STOP! Call for help. Follow-up with: Bradley Samuel MD [Primary Care Provider] -
--- NOTE | 2019-08-27 15:31 | DISCHARGE SUMMARY ---
Discharge Summary Admit Date: 08/26/19 Discharge Date: 08/27/19 Discharging Provider: Dr Noemy Anthony Primary Care Provider: Dr Harman Samuel Code Status: Attempt Resuscitation Condition at Discharge: Stable Discharge Disposition: 01 Home, Self Care - DIAGNOSES Admission Diagnoses: 1) Right lower quadrant pain 2) Crohn's disease 3) Blood in stool 4) Chronic current use of steroids 5) History of rheumatoid arthritis 6) History of DVT 7) Morbid obesity, BMI 42 Discharge Diagnoses with Status of Each Condition: See below - HPI History of Present Illness: This is a 49-year-old white female with history of Crohn's, Enterocutaneous fistula in 2016 on Remicade, lupus, with lupus pericarditis, rheumatoid arthritis affecting many joints of her hands and shoulders and 2 prior DVTs. She has not had a Crohn's flareup since moving here from [place] about 1-1/2 years ago. She developed 3 days of right lower quadrant pain without her usual nausea and vomiting of a Crohn's flareup but with her usual mucousy bloody diarrhea and painful defecating. Work-up in the emergency room revealed a normal white blood count, no fever, CT of the abdomen was done that showed no areas of inflammation and a normal-looking appendix. Was placed in observation to monitor for worsening symptoms because of the previous enterocutaneous fistula, IV hydration and FAlgyl, antiemetics and pain medications for a presumed Crohn's flareup. - HOSPITAL COURSE Hospital Course: 1) RLQ pain. There was minor improvement by the second day. Because of a normal white count, no fever and abnormal CT scan, she did not have surgical consultation. Dilaudid caused nausea, Toradol was used for pain control. 2) Crohns disease, with flare-up. She was put on empiric Flagyl p.o., bowel rest with only clear liquids and IV hydration. I contacted her Water And Gas Helper Dr. Tirado who agreed this was probably a Crohn's flareup, agreed with Flagyl, on which she was discharged. She was also discharged with a burst of 3 days of slightly higher Prednisone at 10 mg, then back down to 5 mg daily. She was advised to advance her diet as tolerated with low-fiber foods and no milk or milk products. She was advised to have light activity and remain off of work for [address] Tirado wanted her to make an appointment to see him in 1-2 weeks. 3) Blood in stool This was consistent with a Crohns symptom. 4) Steroid use, chronic. Dose changed as above in #2. - ALLERGIES Allergies/Adverse Reactions: Allergies Allergy/AdvReac Type Severity Reaction Status Date / Time doxepin Allergy Intermediate Respiratory Verified 09/14/18 01:18 adalimumab [From Humira] Allergy Unknown Verified 08/30/19 08:31 metoclopramide [From Reglan] Allergy Respiratory Verified 09/14/18 01:18 Penicillins Allergy Rash Verified 09/14/18 01:18 prochlorperazine Allergy Respiratory Verified 09/14/18 01:18 [From Compazine] - MEDICATIONS Home Medications: Ambulatory Orders Medication Instructions Recorded Confirmed HYDROcod/ACETAM 5/325 [[place] 5/325] 325 mg PO DAILY 04/08/18 03/14/19 buPROPion [Wellbutrin Sr] 300 mg PO DAILY 04/08/18 03/14/19 traZODone [Desyrel] 50 mg PO DAILY 04/08/18 03/14/19 Lidocaine Patch 5% [Lidoderm Patch] 1 patch TOP DAILY PRN #10 patch 09/14/18 03/14/19 predniSONE [Prednisone] 60 mg PO DAILY #15 tablet 09/14/18 03/14/19 Ketorolac [Toradol] 10 mg PO Q6HR PRN #10 tablet 08/27/19 metroNIDAZOLE [Flagyl] 500 mg PO Q8H #18 tablet 08/27/19 predniSONE [Deltasone] 10 mg PO ONCE tablet 08/27/19 - PHYSICAL EXAM AT DISCHARGE General Appearance: positive: No acute distress Eyes Bilateral: positive: Normal inspection, EOMI ENT: positive: ENT inspection nml Neck: positive: No JVD Respiratory: positive: No respiratory distress, Breath sounds nml Cardiovascular: positive: Regular rate & rhythm, No murmur Abdomen: positive: Nml bowel sounds, No distention, Other (Nontender to light palpation, tender to moderately deep palpation diffusely with no guarding or rebound) Skin: positive: Color nml, Warm, Dry Extremities: positive: Nml appearance, No pedal edema Neurologic/Psychiatric: positive: Oriented x3, Other (Grossly intact) - LABS Result Diagrams: 08/27/19 06:08 08/27/19 06:08 - DIAGNOSTIC IMAGING Diagnostic Imaging Results: Final report reviewed - FOLLOW UP Follow Up: See dental instrument maker in 1 to 2 weeks. See PCP for a routine follow-up.
[2019-08-27 16:12] VITALS: BP 124/68
== END 2019-08-27 16:00 | disposition home or self-care (01) ==
LOC: ED 11:01 → MS2 17:45
PROVIDERS: ADMIT Internal Medicine; ATTEND Internal Medicine
DX: R10.31 Right lower quadrant pain (principal); K50.911 Crohn's disease, unspecified, with rectal bleeding; R11.0 Nausea; T40.2X5A Adverse effect of other opioids, initial encounter; Y92.230 Patient room in hospital as the place of occurrence of the external cause; E66.01 Morbid (severe) obesity due to excess calories; M06.9 Rheumatoid arthritis, unspecified; Z87.19 Personal history of other diseases of the digestive system; Z87.891 Personal history of nicotine dependence; Z68.41 Body mass index [BMI] 40.0-44.9, adult; Z79.52 Long term (current) use of systemic steroids; Z86.718 Personal history of other venous thrombosis and embolism; Z79.899 Other long term (current) drug therapy; Z87.39 Personal history of other diseases of the musculoskeletal system and connective tissue; Z79.891 Long term (current) use of opiate analgesic
CPT/HCPCS: 36415; 74177; 80053; 81003; 82607; 82746; 83690; 85025; 85610; 86140; 96361; 96374; 96375; 96376; 99284; 99285; A9270; G0378; J1170; Q9967; 81001; 87086

== ENCOUNTER 2019-11-23 07:47 | Outpatient (CLI) | payer BC ==
[2019-11-23 09:02] LABS: FOLLICLE STIMULATING HORMONE 107.3 mIU/mL
== END 2019-11-23 07:48 | disposition home or self-care (01) ==
LOC: LAB 07:47
PROVIDERS: ATTEND Obstetrics & Gynecology
DX: N95.9 Unspecified menopausal and perimenopausal disorder (principal)
CPT/HCPCS: 36415; 82670; 83001; 84443

== ENCOUNTER 2020-01-14 08:00 | Outpatient (CLI) | payer BC ==
--- NOTE | 2020-01-15 09:48 | XRAY Report ---
Reason: RHEUMATOID ARTHRITIS Procedure Date: 01/14/2020 Accession Number: [id number] / [id number] Procedure: WCP - Shoulder 3 View LT CPT Code: Final Report FULL RESULT: EXAM: LEFT SHOULDER RADIOGRAPHY EXAM DATE: 01/14/2020 01:48 PM. CLINICAL HISTORY: RHEUMATOID ARTHRITIS. COMPARISON: SHOULDER 3 VIEW LT 12/28/2018 1:54 PM. TECHNIQUE: 4 views. FINDINGS: Bones: Normal. No fracture or bone lesion. Normal bony mineralization. No erosive changes. Joints: Superior distal left clavicular spurring. No dislocation or subluxation. Soft tissues: The visualized hemithorax is unremarkable. No soft tissue swelling. IMPRESSION: Mild left acromioclavicular joint degenerative changes. RADIA
== END 2020-01-14 23:59 | disposition home or self-care (01) ==
LOC: DI.WCP 08:00
PROVIDERS: ATTEND Orthopaedic Surgery
DX: M19.012 Primary osteoarthritis, left shoulder (principal)

== ENCOUNTER 2020-09-02 14:45 | Outpatient (CLI) | payer BC ==
[2020-09-02 15:04] LABS: BASOPHILS # (AUTO) 0.1 10^3/uL (0.0-0.1); BASOPHILS % (AUTO) 0.6 %; EOSINOPHILS # (AUTO) 0.1 10^3/uL (0.0-0.7); EOSINOPHILS % (AUTO) 1.1 %; HGB - HEMOGLOBIN 15.1 g/dL (12.0-16.0); LYMPHOCYTES # (AUTO) 3.6 10^3/uL (1.5-3.5); LYMPHOCYTES % (AUTO) 34.4 %; MEAN CORPUSCULAR HEMOGLOBIN 30.3 pg (27.0-31.0); MEAN CORPUSCULAR HGB CONC 33.2 g/dL (32.0-36.0); MEAN CORPUSCULAR VOLUME 91.2 fL (81.0-99.0); MEAN PLATELET VOLUME 9.1 fL (7.9-10.8); MONOCYTES # (AUTO) 0.7 10^3/uL (0.0-1.0); NEUTROPHILS # (AUTO) 5.8 10^3/uL (1.5-6.6); NEUTROPHILS % (AUTO) 56.4 %; PLT - PLATELET COUNT 352 10^3/uL (130-450); RED BLOOD COUNT 4.99 10^6/uL (4.20-5.40); RED CELL DISTRIBUTION WIDTH 13.8 % (12.0-15.0); WHITE BLOOD COUNT 10.3 x10^3/uL (4.8-10.8)
[2020-09-02 15:16] LABS: ALBUMIN 4.1 g/dL (3.2-5.5); ALBUMIN/GLOBULIN RATIO 1.2 (1.0-2.2); BILIRUBIN,TOTAL 0.4 mg/dL (0.2-1.0); CALCIUM 9.3 mg/dL (8.5-10.3); TOTAL PROTEIN 7.5 g/dL (6.7-8.2)
== END 2020-09-02 14:46 | disposition home or self-care (01) ==
LOC: LAB 14:45
PROVIDERS: ATTEND Internal Medicine
DX: R19.7 Diarrhea, unspecified (principal); R10.9 Unspecified abdominal pain; K50.813 Crohn's disease of both small and large intestine with fistula
CPT/HCPCS: 36415; 80053; 85025

== ENCOUNTER 2020-09-08 08:00 | Outpatient (CLI) | payer BC | END 2020-09-08 08:01 | disposition home or self-care (01) | LOC: LAB.R 08:00 | PROVIDERS: ATTEND Nurse Practitioner | DX: J06.9 Acute upper respiratory infection, unspecified (principal); Z20.822 Contact with and (suspected) exposure to COVID-19 | CPT/HCPCS: 87070; 87275; 87276 ==

== ENCOUNTER 2020-09-08 08:22 | Outpatient (CLI) | payer BC ==
--- NOTE | 2020-09-08 08:52 | XRAY Report ---
PROCEDURE: Chest 2 View X-Ray INDICATIONS: ACUTE UPPER RESPIRATORY INFECTION TECHNIQUE: 2 view(s) of the chest. COMPARISON: 04/13/2018. FINDINGS: Surgical changes and devices: Right chest wall Port-A-Cath tip is in SVC.. Lungs and pleura: No pleural effusions or pneumothorax. Increased bronchovascular markings in bilate ral hilar region are seen with mild bronchial wall thickening. No focal infiltrate. Mediastinum: Mediastinal contours are normal. Heart size is normal. Bones and chest wall: No suspicious bony abnormalities. Soft tissues appear unremarkable. IMPRESSION: Suggestion of mild reactive airway disease such as bronchitis or asthma. No focal infiltr ate. Reviewed by: Dayton Cavanaugh MD on 09/08/2020 8:50 AM PST Approved by: Dayton Cavanaugh MD on 09/08/2020 8:50 AM PST Station ID: [id number]
== END 2020-09-08 23:59 | disposition home or self-care (01) ==
LOC: DI.N 08:22
PROVIDERS: ATTEND Nurse Practitioner
DX: J06.9 Acute upper respiratory infection, unspecified (principal)